=== PATIENT | female | born 1975 | race African-American/Black ===

== ENCOUNTER 2016-04-12 11:47 | Emergency (ER) | payer OTHER ==
[2016-04-12 12:32] VITALS: BP 122/80
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
[2016-04-12] MEDS ORDERED: MOTRIN PO ONE ×4 (17:29→17:36)
== END 2016-04-12 17:31 | disposition home or self-care (01) ==
LOC: ED 11:47
DX: S46.912A Strain of unspecified muscle, fascia and tendon at shoulder and upper arm level, left arm, initial encounter (principal); V89.2XXA Person injured in unspecified motor-vehicle accident, traffic, initial encounter; Y93.89 Activity, other specified; Y99.9 Unspecified external cause status; Y92.410 Unspecified street and highway as the place of occurrence of the external cause
CPT/HCPCS: 99283